=== PATIENT | female | born 1955 | race African-American/Black ===

== ENCOUNTER 2016-11-13 23:45 | Emergency (ER) | payer OTHER ==
[~2016-11-13] VITALS: Ht 167.6 cm; Wt 109.0 kg
[~2016-11-13 23:45] MED LIST: LOSA1TAB40 PO
[2016-11-14] MEDS ORDERED: SODIUM CHLORIDE 0.9% 1,000 ML IV ONE (02:17)
[2016-11-14] MEDS ORDERED: ONDANSETRON HCL 4MG/2ML VIAL IV STA (02:17)
[2016-11-14 02:32] LABS: BASOPHILS % 0.5 % (0.0-2.0); EOSINOPHILS % 0.7 % (0.0-5.0); HEMOGLOBIN. 13.9 g/dL (12.0-16.0); LYMPHOCYTES % 10.1 % (20.0-50.0); MEAN CORPUSCULAR HEMOGLOBIN 29.1 pg (28.0-32.0); MEAN CORPUSCULAR VOLUME 88.2 fL (81.0-99.0); MEAN PLATELET VOLUME 8.3 fl (7.4-10.4); MONOCYTES % 3.7 % (2.0-8.0); PLATELET 246 x1000/uL (130-400); RED BLOOD CELL COUNT 4.76 mill/uL (4.2-5.4); RED CELL DISTRIBUTION WIDTH 14.5 % (11.6-14.6)
[2016-11-14 02:37] LABS: CHLORIDE 109 mEq/L (98-107)
[2016-11-14 02:39] LABS: PROTHROMBIN TIME 10.5 sec
[2016-11-14 02:44] LABS: CARBON DIOXIDE 24 mEq/L (21-32)
[2016-11-14] MEDS ORDERED: CLONIDINE 0.1MG TABLET PO ONE (04:15)
[2016-11-14 05:51] VITALS: BP 177/92
== END 2016-11-14 06:35 | disposition short-term general hospital (02) ==
LOC: ER 23:45
DX: R11.2 Nausea with vomiting, unspecified (principal); R10.13 Epigastric pain; E78.00 Pure hypercholesterolemia, unspecified; I10 Essential (primary) hypertension; Z88.6 Allergy status to analgesic agent; Z88.8 Allergy status to other drugs, medicaments and biological substances
CPT/HCPCS: 36415; 71010; 74176; 80053; 83690; 85025; 85610; 93005; 96374; 99285; J2405; J7030; Z7610

== ENCOUNTER 2017-02-04 05:25 | Inpatient (IN) | payer OTHER, MEDICAID ==
[~2017-02-04] VITALS: Ht 167.6 cm; Wt 100.2 kg
[~2017-02-04 05:25] MED LIST changes: +LOSA1TAB33 PO; -LOSA1TAB40 PO
[2017-02-04] MEDS ORDERED: SODIUM CHLORIDE 0.9% 1,000 ML IV ONE (06:04)
[2017-02-04] MEDS ORDERED: ASPIRIN 81MG TABLET PO ONE (06:15)
[2017-02-04] MEDS ORDERED: LORAZEPAM 2MG/ML CPJ IV ONE (06:15)
[2017-02-04 06:34] LABS: BASOPHILS % 0.6 % (0.0-2.0); EOSINOPHILS % 3.8 % (0.0-5.0); HEMATOCRIT. 34.6 % (36.0-48.0); HEMOGLOBIN. 11.4 g/dL (12.0-16.0); MEAN CORPUSCULAR HEMOGLOBIN 30.1 pg (28.0-32.0); MEAN CORPUSCULAR VOLUME 90.8 fL (81.0-99.0); MEAN PLATELET VOLUME 7.8 fl (7.4-10.4); MONOCYTES % 8.1 % (2.0-8.0); NEUTROPHILS % 52.5 % (40.0-76.0); PLATELET 216 x1000/uL (130-400); RED BLOOD CELL COUNT 3.81 mill/uL (4.2-5.4); RED CELL DISTRIBUTION WIDTH 15.1 % (11.6-14.6)
[2017-02-04] MEDS: LOSARTAN POTASSIUM 100 MG TABLET PO ONE ×2 (06:41→06:49)
[2017-02-04 06:43] LABS: PROTHROMBIN TIME 10.7 sec (9.4-11.6)
[2017-02-04] MEDS ORDERED: ONDANSETRON HCL 4MG/2ML VIAL IV ONE (06:45)
[2017-02-04 06:46] LABS: AMMONIA 16 uMol/L (<32)
[2017-02-04 06:52] LABS: CARBON DIOXIDE 27 mEq/L (21-32); CHLORIDE 110 mEq/L (98-107); ETHANOL BLOOD < 10 mg/dL; TROPONIN I < 0.02 ng/mL (0.00-0.04)
[2017-02-04] MEDS ORDERED: FUROSEMIDE 40MG/4ML VIAL IVP ONE (07:45)
[2017-02-04 09:15] LABS: CLARITY URINE CLEAR (CLEAR); COLOR URINE YELLOW (YELLOW); GLUCOSE URINE NEGATIVE (NEGATIVE); KETONES URINE NEGATIVE (NEGATIVE); LEUKOCYTE ESTERASE URINE NEGATIVE (NEGATIVE); NITRITE URINE NEGATIVE (NEGATIVE); OCCULT BLOOD URINE NEGATIVE (NEGATIVE); PROTEIN URINE NEGATIVE (NEGATIVE); SPECIFIC GRAVITY URINE 1.014 (1.005-1.030); UROBILINOGEN URINE 0.2 E.U./dL (0.2-1.0)
[2017-02-04 09:33] LABS: *AMPHETAMINES SCREEN URINE NEGATIVE (NEGATIVE); *BARBITURATES SCREEN URINE NEGATIVE (NEGATIVE); *BENZODIAZEPINES SCREEN URINE NEGATIVE (NEGATIVE); *COCAINE SCREEN URINE NEGATIVE (NEGATIVE); CANNABINOID URINE SCREEN NEGATIVE (NEGATIVE); METHADONE URINE SCREEN NEGATIVE (NEGATIVE); OPIATES URINE SCREEN NEGATIVE (NEGATIVE); PHENCYCLIDINE URINE SCREEN NEGATIVE (NEGATIVE)
[2017-02-04] MEDS ORDERED: GUAIFENESIN 200MG/10ML SUGAR FREE UDC PO PRN (10:00)
[2017-02-04] MEDS ORDERED: NITROGLYCERIN 0.4MG TABLET SL SL PRN (10:00)
[2017-02-04] MEDS ORDERED: ONDANSETRON HCL 4MG/2ML VIAL IV PRN ×2 (10:00→13:45)
[2017-02-04] MEDS ORDERED: NA PHOS,M-B/NA PHOS,DI-BA ENEMA 118ML PR PRN (10:00)
[2017-02-04] MEDS ORDERED: TRAMADOL 50MG TABLET PO PRN (10:00)
[2017-02-04] MEDS ORDERED: ENOXAPARIN 40MG/0.4ML SYR SUBCUT SCH (10:00)
[2017-02-04] MEDS ORDERED: DOCUSATE SODIUM 100MG CAPSULE PO PRN (10:00)
[2017-02-04] MEDS ORDERED: DIPHENHYDRAMINE 50MG/ML VIAL IV PRN (10:00)
[2017-02-04] MEDS ORDERED: ACETAMINOPHEN 325MG TABLET PO PRN (10:00)
[2017-02-04] MEDS ORDERED: LORAZEPAM 2MG/ML CPJ IV PRN (10:00)
[2017-02-04] MEDS ORDERED: CLONIDINE 0.1MG TABLET PO PRN (10:00)
[2017-02-04] MEDS ORDERED: MAGNESIUM/ALUMINUM HYDROXIDE/SIMETHICONE 30ML UDC PO PRN (10:00)
[2017-02-04] MEDS ORDERED: IPRATROPIUM/ALBUTEROL 0.5-3(2.5)MG/3ML NEB INH PRN (10:00)
[2017-02-04] MEDS ORDERED: ONDANSETRON HCL 4MG/2ML VIAL ONE (11:58)
[2017-02-04 13:20] VITALS: BP 179/81
[2017-02-04 13:30] VITALS: BP 179/81
[2017-02-04] MEDS ORDERED: LASIX (15:51)
[2017-02-04] MEDS ORDERED: IBUPROPHEN (15:51)
[2017-02-04] MEDS ORDERED: RANITIDINE (15:51)
[2017-02-04] MEDS ORDERED: ASPI-1159 PO (15:51)
[2017-02-04] MEDS ORDERED: LOSA50TA20 PO (15:51)
[2017-02-04 16:17] LABS: CREATINE KINASE 287 IU/L (26-192); CREATINE KINASE MB FRACTION 2.8 ng/mL (0.5-3.6); TROPONIN I < 0.02 ng/mL (0.00-0.04)
[2017-02-04] MEDS: AMLODIPINE 10MG TABLET PO SCH (16:24)
[2017-02-04 16:40] VITALS: BP 162/74
[2017-02-04] MEDS: CARVEDILOL 3.125 MG TABLET PO SCH (18:06)
[2017-02-04 20:00] VITALS: BP 143/65
[2017-02-04] MEDS ORDERED: FAMOTIDINE 20MG/2ML VIAL IV SCH (21:00)
[2017-02-04] MEDS ORDERED: ZOLPIDEM TARTRATE 5MG TABLET PO PRN (21:00)
[2017-02-04] MEDS: SPIRONOLACTONE 25MG TABLET PO SCH (21:20)
[2017-02-04] MEDS: FUROSEMIDE 40MG/4ML VIAL IVP SCH (21:20)
[2017-02-04] MEDS: LISINOPRIL 20MG TABLET PO SCH (21:20)
[2017-02-04] MEDS: ENOXAPARIN 30MG/0.3ML SYR SUBCUT SCH (21:21)
[2017-02-04] MEDS ORDERED: POTASSIUM CHLORIDE 20MEQ TABLET SR PO NR (22:15)
[2017-02-04] MEDS ORDERED: MAGNESIUM 2 G PREMIX 50 ML IV NR (23:00)
[2017-02-05] VITALS: BP 123/63
[2017-02-05] LABS: CREATINE KINASE 315 IU/L (26-192); CREATINE KINASE MB FRACTION 2.4 ng/mL (0.5-3.6); TROPONIN I < 0.02 ng/mL (0.00-0.04)
[2017-02-05 04:00] VITALS: BP 128/78
[2017-02-05] MEDS: CARVEDILOL 3.125 MG TABLET PO SCH (06:08)
[2017-02-05 08:00] VITALS: BP 121/52
[2017-02-05] MEDS ORDERED: INFLUENZA VIRUS VACCINE 0.5ML SYR IM ONE (08:00)
[2017-02-05] MEDS ORDERED: PNEUMOCOCCAL 23-VAL P-SAC VAC 0.5 ML IM ONE (08:00)
[2017-02-05] MEDS ORDERED: ASPIRIN 325MG EC TABLET PO SCH (09:00)
[2017-02-05 10:33] VITALS: BP 118/60
[2017-02-05] MEDS: AMLODIPINE 10MG TABLET PO SCH (10:34)
[2017-02-05] MEDS: SPIRONOLACTONE 25MG TABLET PO SCH (10:34)
[2017-02-05] MEDS: LISINOPRIL 20MG TABLET PO SCH (10:34)
[2017-02-05] MEDS: ENOXAPARIN 30MG/0.3ML SYR SUBCUT SCH (10:35)
[2017-02-05] MEDS: FUROSEMIDE 40MG/4ML VIAL IVP SCH (10:35)
== END 2017-02-05 13:50 | disposition left against medical advice (07) | DRG 292 ==
LOC: ER 06:03 → 6WST 08:01 → EDBEDREQ 08:05 → EDBEDREQTM 08:05 → ENRESERV 12:04 → 6WST 20:45
PROVIDERS: ADMIT Internal Medicine; ATTEND Internal Medicine
DX: I11.0 Hypertensive heart disease with heart failure (principal); E44.1 Mild protein-calorie malnutrition; I50.33 Acute on chronic diastolic (congestive) heart failure; M19.90 Unspecified osteoarthritis, unspecified site; Z88.5 Allergy status to narcotic agent; Z68.35 Body mass index [BMI] 35.0-35.9, adult; Z88.8 Allergy status to other drugs, medicaments and biological substances
CPT/HCPCS: 36415; 70450; 71010; 80053; 80061; 80305; 81003; 82140; 82550; 82553; 83036; 83735; 83880; 84132; 84443; 84484; 85025; 85610; 93005; 93306; 93970; 96361; 96374; 96375; 96376; 99285; G0482; J1650; J1940; J2060; J2405; J3475; J3490; J7030

== ENCOUNTER 2017-10-02 05:45 | Emergency (ER) | payer OTHER, MEDICAID ==
[~2017-10-02] VITALS: Ht 167.6 cm; Wt 109.0 kg
[~2017-10-02 05:45] MED LIST changes: +ASPI-1159 PO; +IBUPROPHEN; +LASIX; -LOSA1TAB33 PO; +LOSA50TA20 PO; +RANITIDINE
[2017-10-02] MEDS ORDERED: FUROSEMIDE 40MG/4ML VIAL IV ONE (07:00)
[2017-10-02] MEDS ORDERED: CLONIDINE 0.1MG TABLET PO ONE (07:00)
[2017-10-02] MEDS ORDERED: ONDANSETRON HCL 4MG/2ML VIAL IV ONE (07:00)
[2017-10-02 07:44] LABS: BASOPHILS % 0.8 % (0.0-2.0); EOSINOPHILS % 3.7 % (0.0-5.0); HEMATOCRIT. 35.3 % (36.0-48.0); HEMOGLOBIN. 11.7 g/dL (12.0-16.0); LYMPHOCYTES % 28.2 % (20.0-50.0); MEAN CORPUSCULAR HEMOGLOBIN 29.9 pg (28.0-32.0); MEAN CORPUSCULAR VOLUME 90.3 fL (81.0-99.0); MONOCYTES % 7.2 % (2.0-8.0); NEUTROPHILS % 60.1 % (40.0-76.0); PLATELET 215 x1000/uL (130-400); RED BLOOD CELL COUNT 3.91 mill/uL (4.2-5.4); RED CELL DISTRIBUTION WIDTH 14.2 % (11.6-14.6)
[2017-10-02 07:51] LABS: CHLORIDE 112 mEq/L (98-107)
[2017-10-02 07:53] LABS: INR 1.1; PROTHROMBIN TIME 11.1 sec (9.4-11.6)
[2017-10-02] MEDS ORDERED: MECLIZINE 25MG TABLET PO ONE (09:45)
[2017-10-02 11:10] VITALS: BP 156/88
== END 2017-10-02 11:13 | disposition home or self-care (01) ==
LOC: ER 05:45
DX: I11.0 Hypertensive heart disease with heart failure (principal); I50.9 Heart failure, unspecified; K21.9 Gastro-esophageal reflux disease without esophagitis; Z88.5 Allergy status to narcotic agent; Z79.82 Long term (current) use of aspirin
CPT/HCPCS: 36415; 71045; 80053; 83880; 84484; 85025; 85610; 93005; 96374; 96375; 99285; J1940; J2405

== ENCOUNTER 2021-03-18 15:11 | Inpatient (IN) | payer OTHER ==
[~2021-03-18] VITALS: Ht 165.1 cm; Wt 122.6 kg
[~2021-03-18 15:11] MED LIST changes: -ASPI-1159 PO; +ASPI-1497 PO; -LOSA50TA20 PO; +LOSA50TA41 PO
[2021-03-18] MEDS ORDERED: ONDANSETRON HCL 4MG/2ML INJ IV STA (15:58)
[2021-03-18] MEDS ORDERED: SODIUM CHLORIDE 0.9% 1,000 ML IV ONE (16:00)
[2021-03-18] MEDS ORDERED: CLONIDINE 0.2MG TABLET PO ONE (16:00)
[2021-03-18 16:21] LABS: BASOPHILS % 0.9 % (0.0-2.0); EOSINOPHILS % 5.2 % (0.0-5.0); HEMATOCRIT. 35.6 % (36.0-48.0); HEMOGLOBIN. 11.5 g/dL (12.0-16.0); MEAN CORPUSCULAR HEMOGLOBIN 29.5 pg (28.0-32.0); MEAN CORPUSCULAR VOLUME 91.1 fL (81.0-99.0); MEAN PLATELET VOLUME 8.7 fl (7.4-10.4); MONOCYTES % 8.1 % (2.0-8.0); NEUTROPHILS % 43.8 % (40.0-76.0); PLATELET 240 x1000/uL (130-400); RED CELL DISTRIBUTION WIDTH 14.2 % (11.6-14.6)
[2021-03-18 16:22] LABS: CHLORIDE 113 mEq/L (98-107)
[2021-03-18] MEDS ORDERED: ASPIRIN 81MG TABLET PO ONE (18:00)
[2021-03-18] MEDS ORDERED: ONDANSETRON HCL 4MG/2ML INJ IV ONE (18:00)
[2021-03-19 00:10] VITALS: BP 146/60
[2021-03-19] MEDS ORDERED: ONDANSETRON HCL 4MG/2ML INJ IV PRN (00:45)
[2021-03-19] MEDS ORDERED: DOCUSATE SODIUM 100MG CAPSULE PO PRN (00:45)
[2021-03-19] MEDS ORDERED: GUAIFENESIN 200MG/10ML SUGAR FREE UDC PO PRN (00:45)
[2021-03-19] MEDS ORDERED: ENOXAPARIN 40MG/0.4ML SYR SUBCUT SCH (00:45)
[2021-03-19] MEDS ORDERED: CLONIDINE 0.1MG TABLET PO PRN (00:45)
[2021-03-19] MEDS ORDERED: ACETAMINOPHEN 325MG TABLET PO PRN (00:45)
[2021-03-19] MEDS ORDERED: MAGNESIUM/ALUMINUM HYDROXIDE/SIMETHICONE 30ML UDC PO PRN (00:45)
[2021-03-19] MEDS: SODIUM CHLORIDE 0.45% 1,000 ML IV SCH ×2 (02:15→18:00)
[2021-03-19 04:00] VITALS: BP 145/60
[2021-03-19] MEDS ORDERED: SCOP1PAT2 TP (04:49)
[2021-03-19] MEDS ORDERED: HYDR-4134 PO (04:49)
[2021-03-19] MEDS ORDERED: *PATIENT'S OWN MEDICATION STORAGE XX SCH (05:30)
[2021-03-19] MEDS ORDERED: ENOXAPARIN 30MG/0.3ML SYR SUBCUT SCH (06:00)
[2021-03-19 08:00] VITALS: BP 110/59
[2021-03-19] MEDS: LOSARTAN POTASSIUM 50 MG TABLET PO SCH ×2 (09:24→18:00)
[2021-03-19 12:00] VITALS: BP 161/69
[2021-03-19 16:00] VITALS: BP 138/58
[2021-03-19] MEDS: ENOXAPARIN 40MG/0.4ML SYR SUBCUT SCH (18:07)
[2021-03-19 20:00] VITALS: BP 136/54
[2021-03-20] VITALS: BP 130/53
[2021-03-20 04:00] VITALS: BP 153/72
[2021-03-20] MEDS: ENOXAPARIN 40MG/0.4ML SYR SUBCUT SCH ×2 (05:25→18:14)
[2021-03-20 06:57] LABS: BASOPHILS % 0.8 % (0.0-2.0); EOSINOPHILS % 6.2 % (0.0-5.0); HEMATOCRIT. 32.1 % (36.0-48.0); HEMOGLOBIN. 10.6 g/dL (12.0-16.0); LYMPHOCYTES % 31.3 % (20.0-50.0); MEAN CORPUSCULAR HEMOGLOBIN 29.9 pg (28.0-32.0); MEAN CORPUSCULAR VOLUME 90.6 fL (81.0-99.0); MEAN PLATELET VOLUME 8.5 fl (7.4-10.4); MONOCYTES % 8.7 % (2.0-8.0); PLATELET 228 x1000/uL (130-400); RED BLOOD CELL COUNT 3.55 mill/uL (4.2-5.4); RED CELL DISTRIBUTION WIDTH 14.1 % (11.6-14.6)
[2021-03-20 07:11] LABS: CHLORIDE 112 mEq/L (98-107)
[2021-03-20] MEDS ORDERED: ZOLPIDEM TARTRATE 5MG TABLET PO PRN (07:15)
[2021-03-20 07:30] LABS: HDL CHOLESTEROL 46 mg/dL (40-59); LDL CHOLESTEROL 81 mg/dL (5-100)
[2021-03-20] MEDS: SUCRALFATE 1 G/10 ML UDC PO SCH ×4 (08:45→21:38)
[2021-03-20] MEDS: LOSARTAN POTASSIUM 50 MG TABLET PO SCH ×2 (08:46→17:00)
[2021-03-20] MEDS: FAMOTIDINE 20MG TABLET PO SCH ×2 (08:47→21:38)
[2021-03-20] MEDS: AMLODIPINE 5MG TABLET PO SCH ×2 (08:47→21:00)
[2021-03-20] MEDS: SODIUM CHLORIDE 0.45% 1,000 ML IV SCH (14:23)
[2021-03-20 20:00] VITALS: BP 105/66
[2021-03-21] VITALS: BP 125/68
[2021-03-21] MEDS: SODIUM CHLORIDE 0.45% 1,000 ML IV SCH (02:40)
[2021-03-21 04:00] VITALS: BP 152/68
[2021-03-21] MEDS: ENOXAPARIN 40MG/0.4ML SYR SUBCUT SCH ×2 (06:28→17:17)
[2021-03-21] MEDS: SUCRALFATE 1 G/10 ML UDC PO SCH ×4 (06:28→20:55)
[2021-03-21 08:00] VITALS: BP 134/60
[2021-03-21] MEDS: AMLODIPINE 5MG TABLET PO SCH ×2 (09:00→20:55)
[2021-03-21] MEDS: FAMOTIDINE 20MG TABLET PO SCH ×2 (09:22→20:55)
[2021-03-21] MEDS: LOSARTAN POTASSIUM 50 MG TABLET PO SCH ×2 (09:22→17:17)
[2021-03-21 12:00] VITALS: BP 159/77
[2021-03-21 16:00] VITALS: BP 136/65
[2021-03-22] MEDS: ENOXAPARIN 40MG/0.4ML SYR SUBCUT SCH (06:12)
[2021-03-22] MEDS: SUCRALFATE 1 G/10 ML UDC PO SCH (06:12)
[2021-03-22 08:00] VITALS: BP 135/81
[2021-03-22] MEDS: FAMOTIDINE 20MG TABLET PO SCH (08:44)
[2021-03-22] MEDS: LOSARTAN POTASSIUM 50 MG TABLET PO SCH (08:44)
[2021-03-22] MEDS: AMLODIPINE 5MG TABLET PO SCH (08:45)
[2021-03-22 09:57] VITALS: BP 135/81
== END 2021-03-22 12:15 | disposition home or self-care (01) | DRG 305 ==
LOC: ER 15:11 → EDBEDREQ 17:57 → 6EST 21:34 → EDBEDREQ 21:35 → EDBEDREQSVC 21:35 → EDBEDREQTM 21:35 → ENRESERV 22:02
PROVIDERS: ADMIT Hospitalist; ATTEND Hospitalist
DX: I16.0 Hypertensive urgency (principal); E86.0 Dehydration; I50.9 Heart failure, unspecified; M19.90 Unspecified osteoarthritis, unspecified site; I11.0 Hypertensive heart disease with heart failure; K21.9 Gastro-esophageal reflux disease without esophagitis; Z20.822 Contact with and (suspected) exposure to COVID-19; R11.2 Nausea with vomiting, unspecified; Z79.899 Other long term (current) drug therapy; Z88.5 Allergy status to narcotic agent; Z88.8 Allergy status to other drugs, medicaments and biological substances; Z79.82 Long term (current) use of aspirin
CPT/HCPCS: 36415; 71045; 80053; 80061; 82962; 83880; 84484; 85025; 87426; 93005; 93970; 99285; J1650; J2405; J7030

== ENCOUNTER 2023-03-16 14:11 | Emergency (ER) | payer MEDICAID, OTHER ==
[~2023-03-16] VITALS: Ht 165.1 cm; Wt 100.0 kg
[~2023-03-16 14:11] MED LIST changes: +HYDR-4134 PO; +SCOP1PAT2 TP
[2023-03-16 14:22] VITALS: O2SAT 100
[2023-03-16] MEDS ORDERED: ONDANSETRON HCL 4MG/2ML INJ IV ONE (15:00)
[2023-03-16 15:37] LABS: BASOPHILS % 0.5 % (0.0-2.0); EOSINOPHILS % 3.1 % (0.0-5.0); HEMATOCRIT. 35.3 % (36.0-48.0); HEMOGLOBIN. 11.2 g/dL (12.0-16.0); LYMPHOCYTES % 23.9 % (20.0-50.0); MEAN CORPUSCULAR HEMOGLOBIN 29.3 pg (28.0-32.0); MEAN CORPUSCULAR HGB CONC 31.8 g/dL (31.0-37.0); MEAN CORPUSCULAR VOLUME 92.3 fL (81.0-99.0); MONOCYTES % 6.5 % (2.0-8.0); PLATELET 233 x1000/uL (130-400); RED BLOOD CELL COUNT 3.83 mill/uL (4.2-5.4); RED CELL DISTRIBUTION WIDTH 16.2 % (11.6-14.6); WHITE BLOOD COUNT 10.5 x1000/uL (4.5-11.0)
[2023-03-16 15:44] LABS: INR 1.1; PROTHROMBIN TIME 11.4 sec (9.6-11.0)
[2023-03-16 16:12] LABS: CHLORIDE 115 mEq/L (98-107); INDEX HEMOLYSI 1 (1-3); INDEX ICTERIC 1 (1-4); INDEX LIPEMIC 1 (1-3); POTASSIUM 3.9 mEq/L (3.5-5.1); SODIUM 142 mEq/L (136-145)
[2023-03-16 16:21] LABS: ALANINE AMINOTRANSFERASE 25 IU/L (13-61); ALBUMIN 3.3 g/dL (3.4-5.0); ASPARTATE AMINOTRANSFERASE 22 IU/L (15-37); BILIRUBIN TOTAL 0.3 mg/dL (0.1-1.0); CALCIUM 8.7 mg/dL (8.5-10.1); CARBON DIOXIDE 22 mEq/L (21-32); CREATININE 1.2 mg/dL (0.6-1.3); GLUCOSE 114 mg/dL (70-105); PROTEIN TOTAL 7.4 g/dL (6.0-8.3); TROPONIN I HIGH SENSITIVITY 6 ng/L (<54); UREA NITROGEN BLOOD 28 mg/dL (7-21)
[2023-03-16 18:47] LABS: CLARITY URINE CLEAR (CLEAR); COLOR URINE YELLOW (YELLOW); GLUCOSE URINE NEGATIVE (NEGATIVE); KETONES URINE NEGATIVE (NEGATIVE); LEUKOCYTE ESTERASE URINE NEGATIVE (NEGATIVE); NITRITE URINE NEGATIVE (NEGATIVE); OCCULT BLOOD URINE NEGATIVE (NEGATIVE); PH URINE 5.5 (4.5-8.0); PROTEIN URINE TRACE (NEGATIVE); SPECIFIC GRAVITY URINE 1.022 (1.005-1.030); UROBILINOGEN URINE 0.2 E.U./dL (0.2-1.0)
[2023-03-16 18:57] LABS: BACTERIA URINE NONE SEEN; RBC URINE 0-2 /hpf (0-2); SQUAMOUS EPITHELIAL CELL URINE FEW /lpf (RARE/1+); WBC URINE NONE SEEN /hpf (0-2)
[2023-03-16] MEDS ORDERED: METOCLOPRAMIDE HCL 10MG/2ML VIAL IV ONE (19:30)
[2023-03-16 20:00] VITALS: BP 176/77; PULSE 58; RESP 20
[2023-03-16] MEDS ORDERED: MECLIZINE 25MG TABLET PO ONE (20:15)
== END 2023-03-16 23:03 | disposition home or self-care (01) ==
LOC: ER 14:28
DX: R42 Dizziness and giddiness (principal); R11.2 Nausea with vomiting, unspecified; I11.0 Hypertensive heart disease with heart failure; I50.9 Heart failure, unspecified; M19.90 Unspecified osteoarthritis, unspecified site; K21.9 Gastro-esophageal reflux disease without esophagitis; K80.20 Calculus of gallbladder without cholecystitis without obstruction; Z88.5 Allergy status to narcotic agent
CPT/HCPCS: 99285; 96374; 70450; 71045; 96375; 80053; 81003; 85025; 85610; 84484; 36415; 93005; J8597; J2765; J2405

== ENCOUNTER 2023-12-03 17:36 | Emergency (ER) | payer OTHER ==
[~2023-12-03] VITALS: Ht 160 cm; Wt 100.0 kg
[~2023-12-03 17:36] MED LIST changes: -HYDR-4134 PO; +HYDR25TA78 PO
[2023-12-03 17:44] VITALS: TEMP 98.1; O2SAT 100
[2023-12-03 18:38] VITALS: BP 132/81; PULSE 66; RESP 16
[2023-12-03 19:05] LABS: BASOPHILS % 1.3 % (0.0-2.0); EOSINOPHILS % 3.3 % (0.0-5.0); HEMATOCRIT. 37.4 % (36.0-48.0); HEMOGLOBIN. 12.3 g/dL (12.0-16.0); LYMPHOCYTES % 30.4 % (20.0-50.0); MEAN CORPUSCULAR HEMOGLOBIN 30.6 pg (28.0-32.0); MEAN CORPUSCULAR HGB CONC 32.9 g/dL (31.0-37.0); MEAN CORPUSCULAR VOLUME 93.1 fL (81.0-99.0); MEAN PLATELET VOLUME 9.1 fl (7.4-10.4); PLATELET 265 x1000/uL (130-400); RED BLOOD CELL COUNT 4.02 mill/uL (4.2-5.4); RED CELL DISTRIBUTION WIDTH 15.1 % (11.6-14.6); WHITE BLOOD COUNT 8.9 x1000/uL (4.5-11.0)
[2023-12-03 19:06] LABS: CHLORIDE 110 mEq/L (98-107); POTASSIUM 3.7 mEq/L (3.5-5.1); SODIUM 142 mEq/L (136-145)
[2023-12-03 19:07] LABS: CARBON DIOXIDE 24 mEq/L (21-32)
[2023-12-03 19:08] LABS: CALCIUM 9.9 mg/dL (8.7-10.4)
[2023-12-03 19:12] LABS: CREATININE 1.1 mg/dL (0.6-1.0); GLUCOSE 101 mg/dL (70-105); UREA NITROGEN BLOOD 13 mg/dL (9-23)
[2023-12-03 19:14] LABS: TROPONIN I HIGH SENSITIVITY 5 ng/L (3.0-34)
[2023-12-03] MEDS ORDERED: ONDANSETRON HCL 4MG/2ML INJ IV STA (19:42)
[2023-12-03] MEDS: ONDANSETRON HCL 4MG/2ML INJ IV NR (23:57)
[2023-12-03] MEDS: MECLIZINE 25MG TABLET PO ONE (23:57)
[2023-12-04] MEDS: SODIUM CHLORIDE 0.9% 1,000 ML IV ONE (00:06)
== END 2023-12-03 19:01 | disposition home or self-care (01) ==
LOC: ER 17:36
DX: R42 Dizziness and giddiness (principal); I11.0 Hypertensive heart disease with heart failure; I50.9 Heart failure, unspecified; Z88.5 Allergy status to narcotic agent; Z88.6 Allergy status to analgesic agent; Z79.899 Other long term (current) drug therapy
CPT/HCPCS: 99285; 96374; 71045; 80048; 83880; 85025; 84484; 36415; 93005; J8597; J2405; J7030